=== PATIENT | male | born 1950 | race Two or more races ===

== ENCOUNTER 2018-07-03 20:48 | Emergency (ER) | payer OTHER, MEDICAID ==
[2018-07-03 21:02] VITALS: BP 170/88
== END 2018-07-04 04:13 | disposition home or self-care (01) ==
LOC: ER 20:53
DX: S63.285A Dislocation of proximal interphalangeal joint of left ring finger, initial encounter (principal); W01.0XXA Fall on same level from slipping, tripping and stumbling without subsequent striking against object, initial encounter; Y93.89 Activity, other specified; Y99.8 Other external cause status; Y92.89 Other specified places as the place of occurrence of the external cause
CPT/HCPCS: 26770; 73120; 73130